=== PATIENT | male | born 1965 | race Caucasian/White ===

== ENCOUNTER → 2016-12-26 | Outpatient (CLI) | payer BC ==
[~2016-12-26] MED LIST: /FENO14TA PO; /WARF4TA PO; /WARF5TA PO; ASPI1TAB PO; ASPI81TA85 PO; BISA10SU PR; BUSP10TA PO; COUM6TAB PO; COUM7.5T PO; CYMB60CA3 PO; FLEC10TA PO; LANO0.252 OR; LISI5TAB PO; LIVALO PO; LOPR50TA PO; LOVA1CAP16 PO; METO50TA4 PO; PRIL40CA PO; TENO100T PO; TYLE650T30 PO; WARF; WARF-20 PO; WARF-21 PO; WARF-22 PO; WARF05TA PO
[2016-12-26 17:17] LABS: INR 4.01
== END ==
LOC: M WUC 11:13
PROVIDERS: ATTEND Physician Assistant
DX: Z79.01 Long term (current) use of anticoagulants (principal); Z95.2 Presence of prosthetic heart valve

== ENCOUNTER 2017-05-15 14:00 | Emergency (ER) | payer BC ==
[~2017-05-15] VITALS: Ht 182.9 cm; Wt 73.6 kg
[2017-05-15] MEDS ORDERED: MAGN500C PO (14:10)
[2017-05-15] MEDS ORDERED: PRAV40TA2 (14:10)
[2017-05-15] MEDS ORDERED: MORPHINE 4 MG/ML 1ML SYRINGE IV ONE (15:30)
[2017-05-15 16:06] LABS: BASO % 0.2 % (0.0-1.0); EOS # 0.1 10^3/uL (0.0-0.50); EOS % 0.4 % (0.0-3.0); IMMATURE GRANULOCYTE % 0.5 % (0-0); LYMPH # 1.6 10^3/uL (1.5-4.5); LYMPH % 9.1 % (24.0-44.0); MEAN CORPUSCULAR HEMOGLOBIN 31.1 pg (27.0-33.0); MEAN CORPUSCULAR HGB CONC 35.3 g/dl (32.0-36.5); MEAN CORPUSCULAR VOLUME 88.1 fl (80.0-96.0); MONO # 1.4 10^3/uL (0.0-0.8); NEUTROPHILS # 13.9 10^3/uL (1.8-7.7); NEUTROPHILS % 81.8 % (36.0-66.0); PLATELET COUNT, AUTOMATED 303 10^3/uL (150-450); RED CELL DISTRIBUTION WIDTH 12.2 % (11.5-14.5)
[2017-05-15 16:32] LABS: ERYTHROCYTE SEDIMENTATION RATE 33 mm/hr (0-20)
[2017-05-15 16:36] LABS: ANION GAP 5 MEQ/L (8-16); BLOOD UREA NITROGEN 15 MG/DL (7-18); CALCIUM LEVEL 9.7 MG/DL (8.5-10.1); CARBON DIOXIDE LEVEL 29 MEQ/L (21-32); CHLORIDE LEVEL 104 MEQ/L (98-107); CREATININE FOR GFR 0.99 MG/DL (0.70-1.30); GLOMERULAR FILTRATION RATE > 60.0 (>56); GLUCOSE, FASTING 109 MG/DL (70-105); POTASSIUM SERUM 4.1 MEQ/L (3.5-5.1); SODIUM LEVEL 138 MEQ/L (136-145)
[2017-05-15] MEDS ORDERED: ISOVUE-370 76% 100ML VIAL (Q9967) As Ordered ONE (16:47)
--- NOTE | 2017-05-15 17:29 | REP ---
CT of the pelvis with IV contrast for perirectal abscess: Comparison is the CT of the abdomen and pelvis dated 12/17 2012. In the soft tissues posterior to the rectum. There is a low density mass measuring 2.1 x 3.2 cm compatible with perirectal abscess. This may be confined within the dermis as it does not appear to extend into the perirectal or ischiorectal fat planes at this time. The pelvic bowel loops demonstrate diverticulosis without diverticulitis. There is no ascites. The bladder is nondistended. There are surgical clips adjacent to the cecum. Signed by Fito Ling MD 05/15/2017 05:20 P
[2017-05-15] MEDS ORDERED: COLA100C5 PO (17:58)
[2017-05-15] MEDS ORDERED: NORC1TAB4 PO (17:58)
[2017-05-15] MEDS ORDERED: LIDOCAINE W/EPINEPHRINE 1% 20ML VIAL SC ONE (18:00)
[2017-05-15] MEDS ORDERED: CLEO300C2 PO (18:12)
[2017-05-15] MEDS ORDERED: CLINDAMYCIN 150 MG CAP PO ONE (18:15)
[2017-05-15 18:33] VITALS: BP 140/82
--- NOTE | 2017-05-16 15:39 | CR ---
DATE OF CONSULTATION: 05/15/2017 REASON FOR CONSULTATION: Perirectal abscess. CHIEF COMPLAINT: The patient is a 52-year-old male. He has been complaining of some pain along his posterior rectum since this past Thursday. Pain got progressively worse throughout the week. There was no active bleeding. No blood in his stool. No drainage from this spot, and he has never had any spots like this in the past, but with the progression of the pain and no relief of his symptoms, he came in to be evaluated. In the emergency room (ER) he was found to have swollen lump on his posterior rectum. He had a CT scan which confirmed that there was a fluid collection there and he also had elevated white count of 17,000. I was called to evaluate for drainage. Other than the pain in the rectum, he denies any other complaints. No nausea or vomiting. No fevers or chills. No previous problems with swelling hemorrhoids or blood in his stool, change in bowel habits. No previous colonoscopy and no previous rectal issues. PAST MEDICAL HISTORY: 1. Mitral valve prolapse with mechanical valve replacement. 2. Congestive heart failure (CHF). 3. Hypertension. 4. Gastroesophageal reflux disease (GERD). 5. Hypercholesterolemia. PAST SURGICAL HISTORY: 1. Appendectomy. 2. Mechanical valve replacement. ALLERGIES: None. HOME MEDICATIONS: Please see med rec, but may include Coumadin. SOCIAL HISTORY: Denies any drug, alcohol, tobacco abuse. FAMILY HISTORY: Noncontributory. REVIEW OF SYSTEMS: Pertinent positives and negatives stated in the history of present illness (HPI) . PHYSICAL EXAMINATION GENERAL: Alert and oriented times three. No acute stress. VITALS: Temperature 98.5, pulse 87, respirations 18, blood pressure 140/82, pulse oximetry 95% room air. HEENT: Pupils equal, round react to light and accommodation. HEART: S1, S2 RRR LUNGS: Clear to auscultation bilaterally. ABDOMEN: Soft, nontender, nondistended. RECTAL EXAM: There is a large swollen fluctuant area with some erythema in the posterior rectum just on the posterior midline position. No active drainage. EXTREMITIES: No clubbing, cyanosis or edema. LABORATORY DATA: White count 17, hemoglobin 13.9, platelets 303. Sodium 138, potassium 4.1, creatinine 0.99. IMAGING: CT abdomen and pelvis was done which shows a 2.1 x 3.2 cm fluid collection in the posterior perirectal tissues. ASSESSMENT AND PLAN: Patient is a 52-year-old male with signs and symptoms consistent with perirectal abscess that he has had for about a week, also with elevated leukocytosis secondary to this. Recommendation is to proceed with incision and drainage in the ER; then he can be discharged home from the ER with oral antibiotics and followup with me in the office as needed. I discussed these recommendations with the patient. He agreed and was agreeable to having the procedure completed. Consent form was signed. The nurse was in the room and available throughout the entire procedure. The perirectal area was prepped and draped sterilely with Betadine. Next, six mL of 1% lidocaine with epinephrine was injected in the skin overlying and surrounding this abscess. Once that was completed, an 11 blade scalpel was used to make a cruciate incision right in the center of the abscess, and a large amount of purulent drainage was removed. The area was then irrigated with normal saline. Once that was completed, the corners of the cruciate incision were cut out. The wound was covered with dry 4x4s and then covered in tape. The patient tolerated the procedure well and was discharged by the emergency room. INEZ
== END 2017-05-15 18:49 | disposition home or self-care (01) ==
LOC: M ED 14:00
DX: K61.1 Rectal abscess (principal); I11.0 Hypertensive heart disease with heart failure; K21.9 Gastro-esophageal reflux disease without esophagitis; E78.00 Pure hypercholesterolemia, unspecified; F41.9 Anxiety disorder, unspecified; Z95.1 Presence of aortocoronary bypass graft; Z86.79 Personal history of other diseases of the circulatory system
CPT/HCPCS: 46040; 72193; 80048; 85025; 85652; 86140; 99284; Q9967

== ENCOUNTER 2018-08-27 15:42 | Emergency (ER) | payer BC ==
[~2018-08-27] VITALS: Ht 182.9 cm; Wt 77.3 kg
[~2018-08-27 15:42] MED LIST changes: +CLEO300C2 PO; +COLA100C5 PO; +MAGN500C PO; +NORC1TAB4 PO; +PRAV40TA2
[2018-08-27 16:07] LABS: BASO % 0.4 % (0.0-1.0); EOS # 0.2 10^3/uL (0.0-0.50); HEMATOCRIT 44.2 % (42.0-52.0); HEMOGLOBIN 15.3 g/dl (13.5-17.5); LYMPH # 2.8 10^3/uL (1.5-4.5); LYMPH % 33.7 % (24.0-44.0); MEAN CORPUSCULAR HEMOGLOBIN 31.5 pg (27.0-33.0); MEAN CORPUSCULAR HGB CONC 34.6 g/dl (32.0-36.5); MEAN CORPUSCULAR VOLUME 91.1 fl (80.0-96.0); MONO # 0.8 10^3/uL (0.0-0.8); MONO % 9.1 % (0.0-5.0); NEUTROPHILS # 4.5 10^3/uL (1.8-7.7); NEUTROPHILS % 54.3 % (36.0-66.0); PLATELET COUNT, AUTOMATED 272 10^3/uL (150-450); RED BLOOD COUNT 4.85 10^6/uL (4.30-6.10); WHITE BLOOD COUNT 8.3 10^3/uL (4.0-10.0)
[2018-08-27 16:27] LABS: INR 1.65; PROTHROMBIN TIME 19.8 SECONDS (12.1-14.4)
[2018-08-27 16:40] LABS: BLOOD UREA NITROGEN 18 MG/DL (7-18); CALCIUM LEVEL 8.9 MG/DL (8.5-10.1); CARBON DIOXIDE LEVEL 29 MEQ/L (21-32); CHLORIDE LEVEL 102 MEQ/L (98-107); CREATININE FOR GFR 1.14 MG/DL (0.70-1.30); GLOMERULAR FILTRATION RATE > 60.0 (>56); GLUCOSE, FASTING 155 MG/DL (70-100); SODIUM LEVEL 137 MEQ/L (136-145)
[2018-08-27] MEDS ORDERED: ISOVUE-370 76% 100ML VIAL (Q9967) As Ordered ONE (17:40)
[2018-08-27] MEDS ORDERED: NS 1,000 ML IV ONE (17:45)
--- NOTE | 2018-08-27 18:40 | REP ---
Clinical: Painless hematuria. Technique: Axial precontrast, contrast enhanced, and delayed images of the abdomen and pelvis using 100 ml Isovue 370 intravenous contrast material with delayed CT urogram. Findings: Left kidney demonstrates 2 mm nonobstructing calculus and 3 mm calculus at the ureterovesicle junction without hydronephrosis or perinephric stranding. The right kidney/ureter and bladder appear normal. Enhanced and delayed images demonstrate see symmetric enhancement of the renal cortex and symmetric excretion to the collecting system without obstruction. Liver, spleen, pancreas, gallbladder, bilateral adrenal glands are normal. The enteric system is without obstruction or acute inflammatory process. Evidence for prior appendectomy noted. Pelvis demonstrates normal bladder and age appropriate prostate/seminal vesicles. No ascites. No free air. No significant adenopathy. Atherosclerotic changes to the aorta noted without aneurysm. Surrounding musculoskeletal structures demonstrate age-related changes without focal osseous abnormality. Lung bases are clear. Impression: 1. Left kidney includes 2 mm nonobstructing calculus and 3 mm calculus at the ureterovesicle junction which may be causing intermittent obstruction. No significant hydronephrosis or perinephric stranding. Enhanced and delayed images demonstrate symmetric nephrograms and symmetric excretion to the collecting system. Electronically Signed by Patrick Barraza MD 08/27/2018 06:31 P
[2018-08-27] MEDS ORDERED: FLOM0.4C39 PO (18:46)
[2018-08-27 19:00] VITALS: BP 143/70
== END 2018-08-27 19:03 | disposition home or self-care (01) ==
LOC: M ED 15:42
DX: N20.1 Calculus of ureter (principal); R31.0 Gross hematuria; D68.32 Hemorrhagic disorder due to extrinsic circulating anticoagulants; Z87.891 Personal history of nicotine dependence; Z79.899 Other long term (current) drug therapy; Z79.01 Long term (current) use of anticoagulants; Z79.82 Long term (current) use of aspirin
CPT/HCPCS: 36415; 74178; 80048; 81001; 85025; 85610; 99284; Q9967

== ENCOUNTER → 2019-08-25 | Outpatient (CLI) | payer BC ==
[~2019-08-25] MED LIST changes: -/FENO14TA PO; -/WARF4TA PO; -/WARF5TA PO; -ASPI1TAB PO; +ASPI81TA26 PO; +COUM1TAB14 PO; +COUM1TAB17 PO; -FLEC10TA PO; +FLEC1TAB PO; +FLOM0.4C39 PO; -NORC1TAB4 PO; +NORC1TAB7 PO; +TRIC145T19 PO
--- NOTE | 2019-08-26 01:45 | REP ---
Clinical: Acute bronchitis . Comparison: 04/02/2014 . Technique: PA and lateral. Findings: The mediastinum and cardiac silhouette are stable with evidence of prior sternotomy and cardiac valve repair. The lung shelton are clear and without acute consolidation, effusion, or pneumothorax. The skeletal structures are intact and normal. Impression: 1. No acute cardiopulmonary process. Electronically Signed by Patrick Barraza MD 08/26/2019 01:36 A
== END ==
LOC: M WUC 12:19
PROVIDERS: ATTEND Internal Medicine
DX: J20.9 Acute bronchitis, unspecified (principal)

== ENCOUNTER 2019-10-24 12:10 | Emergency (ER) | payer BC ==
[~2019-10-24] VITALS: Ht 175.3 cm; Wt 74.8 kg
[2019-10-24] MEDS: METOPROLOL 5 MG/5 ML VIAL IV SCH ×3 (12:27→12:44)
[2019-10-24] MEDS ORDERED: NS 1,000 ML IV ONE (12:30)
[2019-10-24 12:37] LABS: BASO % 0.2 % (0.0-1.0); HEMATOCRIT 39.7 % (42.0-52.0); HEMOGLOBIN 13.7 g/dl (13.5-17.5); LYMPH # 1.9 10^3/uL (1.5-5.0); LYMPH % 13.5 % (24.0-44.0); MEAN CORPUSCULAR HEMOGLOBIN 31.2 pg (27.0-33.0); MEAN CORPUSCULAR HGB CONC 34.5 g/dl (32.0-36.5); MEAN CORPUSCULAR VOLUME 90.4 fl (80.0-96.0); MONO % 7.1 % (0.0-5.0); NEUTROPHILS # 10.9 10^3/uL (1.5-8.5); NEUTROPHILS % 78.7 % (36.0-66.0); PLATELET COUNT, AUTOMATED 288 10^3/uL (150-450); RED BLOOD COUNT 4.39 10^6/uL (4.30-6.10); WHITE BLOOD COUNT 13.9 10^3/uL (4.0-10.0)
[2019-10-24 12:44] VITALS: BP 108/87
[2019-10-24 12:47] LABS: INR 2.54; PROTHROMBIN TIME 27.2 SECONDS (11.8-14.0)
[2019-10-24 12:48] LABS: PARTIAL THROMBOPLASTIN TIME 35.6 SECONDS (25.0-38.4)
--- NOTE | 2019-10-24 12:59 | REP ---
CHEST, PORTABLE: AP portable view of the chest is performed. Comparison 08/25/2019. There is mild cardiomegaly. There is mild accentuation of interstitial markings unchanged. No new infiltrate is seen. Mediastinal is silhouette is unchanged. Multiple sternal wires are present. There is a prosthetic heart valve. IMPRESSION: Cardiomegaly with mild accentuation of interstitial markings unchanged since 08/25/2019. No new infiltrate. Electronically Signed by Fito Chacko MD 10/24/2019 03:19 P
[2019-10-24 13:14] LABS: ALT/SGPT 279 U/L (12-78); BILIRUBIN,DIRECT 0.7 MG/DL (0.0-0.2); BILIRUBIN,TOTAL 1.8 MG/DL (0.2-1.0); BLOOD UREA NITROGEN 38 MG/DL (7-18); CALCIUM LEVEL 8.5 MG/DL (8.5-10.1); CARBON DIOXIDE LEVEL 26 MEQ/L (21-32); CHLORIDE LEVEL 99 MEQ/L (98-107); CK-MB VALUE MASS < 1.0 NG/ML (<3.6); CPK CREATINE PHOSPHOKINASE 81 U/L (39-308); CREATININE FOR GFR 1.81 MG/DL (0.70-1.30); GLOMERULAR FILTRATION RATE 41.8 (>56); GLUCOSE, FASTING 187 MG/DL (70-100); MAGNESIUM LEVEL 1.7 MG/DL (1.8-2.4); MB/CK RELATIVE INDEX 1.23 (< OR =4); NT-PRO BNP 16836 PG/ML (<125); POTASSIUM SERUM 4.5 MEQ/L (3.5-5.1); SODIUM LEVEL 133 MEQ/L (136-145); TOTAL PROTEIN 7.1 GM/DL (6.4-8.2); TROPONIN I 0.03 NG/ML (< 0.10)
[2019-10-24] MEDS ORDERED: DIGOXIN INJ 0.5 MG/2 ML AMP (J1160) IV STA (13:14)
[2019-10-24] MEDS ORDERED: AMIODARONE HCL 150 MG in IV 1 EA IV STA ×2 (14:15→14:32)
[2019-10-24] MEDS ORDERED: AMIODARONE HCL 150 MG/100 ML PREMIXED BAG (NEXTERONE) (J0282 PER 30MG) As Ordered ONE (14:16)
[2019-10-24 14:42] LABS: LIPASE 129 U/L (73-393)
[2019-10-24 15:55] VITALS: BP 121/83
--- NOTE | 2019-10-24 16:43 | ECGEPIP ---
[facility] - ED Test Date: 2019-10-24 Pat Name: RASHAWN MADRID Department: Room: - Gender: Male Systems Programmer: ANGELINE : 1965 Requested By: SWATHI TORRES Order Number: [id number] Reading MD: Jt Peres Measurements Intervals Abbot Rate: 176 P: CO: 0 QRS: 26 QRSD: 90 T: 26 QT: 244 QTc: 418 Interpretive Statements ATRIAL FIBRILLATION WITH RAPID VENTRICULAR RESPONSE NONSPECIFIC ST & T-WAVE ABNORMALITY ABNORMAL RHYTHM ECG LOW QRS VOLTAGE LIMB LEADS DELAYED R WAVE PROGRESSION NO PRIOR ECG FOR COMPARISON Electronically Signed on 10-24-2019 16:43:36 EDT by Jt Peres
== END 2019-10-24 16:41 | disposition left against medical advice (07) ==
LOC: M ED 12:10
DX: I48.91 Unspecified atrial fibrillation (principal); R94.31 Abnormal electrocardiogram [ECG] [EKG]; Z53.21 Procedure and treatment not carried out due to patient leaving prior to being seen by health care provider; I50.9 Heart failure, unspecified; Z95.2 Presence of prosthetic heart valve; Z87.891 Personal history of nicotine dependence; I51.7 Cardiomegaly; Z79.82 Long term (current) use of aspirin; Z79.01 Long term (current) use of anticoagulants; Z79.899 Other long term (current) drug therapy
CPT/HCPCS: 71045; 80047; 80048; 80076; 82550; 82553; 83690; 83735; 83880; 84443; 84484; 85025; 85610; 85730; 93005; 93041; 96374; 99285; J0282; J1160

== ENCOUNTER → 2020-01-31 | Outpatient (CLI) | payer BC ==
--- NOTE | 2020-02-01 07:27 | REP ---
REASON: Rib sprain. PRIORS: None. The accompanying frontal view of the chest has been compared to the latest prior examination of 10/24/2019. The frontal view of the chest is unchanged from the prior exam, showing no acute disease. Multiple views of right ribs show no acute fracture. Electronically Signed by Kee Yepez DO 02/01/2020 09:28 A
== END ==
LOC: M WUC 11:51
PROVIDERS: ATTEND Nurse Practitioner Family
DX: S23.41XA Sprain of ribs, initial encounter (principal); X58.XXXA Exposure to other specified factors, initial encounter; Y92.89 Other specified places as the place of occurrence of the external cause

== ENCOUNTER → 2020-04-24 | Outpatient (CLI) | payer BC ==
--- NOTE | 2020-05-01 13:55 | REP ---
RIGHT ANKLE SERIES HISTORY: Fall on stairs with ankle pain laterally. TECHNIQUE: Four views of the left ankle are performed. FINDINGS: There is no acute fracture or dislocation. Ankle mortise is anatomic. No intrinsic osseous pathology is seen. There is mild lateral soft tissue swelling. IMPRESSION: Mild lateral soft tissue swelling. No acute fracture or dislocation. MTDD
== END ==
LOC: M WUC 15:00
PROVIDERS: ATTEND Physician Assistant
DX: S93.401A Sprain of unspecified ligament of right ankle, initial encounter (principal)

== ENCOUNTER → 2021-01-03 | Outpatient (CLI) | payer BC ==
--- NOTE | 2021-01-03 10:16 | REP ---
INDICATION: PAROXYSMAL ATRIAL FIBRILLATION COMPARISON: 08/25/2019 TECHNIQUE: PA and lateral. FINDINGS: Evidence for prior sternotomy and cardiac valve repair. No cardiomegaly. Lung shelton demonstrate stable chronic interstitial changes. No acute consolidation, effusion, or pneumothorax. Skeletal structures intact. IMPRESSION: Chronic stable changes. <Electronically signed by Patrick Barraza > 01/03/21 [id number]
== END ==
LOC: M WUC 09:47
PROVIDERS: ATTEND Physician Assistant
DX: I48.0 Paroxysmal atrial fibrillation (principal)

== ENCOUNTER 2021-04-27 10:44 | Emergency (ER) | payer BC ==
[~2021-04-27] VITALS: Ht 182.9 cm; Wt 73.3 kg
[2021-04-27] MEDS ORDERED: MORPHINE 4 MG/ML 1ML VIAL/SYRINGE (J2270) IV ONE (13:00)
[2021-04-27] MEDS ORDERED: ONDANSETRON 4MG/2ML VIAL IV ONE (13:00)
[2021-04-27] MEDS ORDERED: NS 1,000 ML IV ONE (13:00)
[2021-04-27 13:36] LABS: BASO % 0.3 % (0.0-1.0); EOS # 0.1 10^3/uL (0.0-0.5); HEMATOCRIT 39.4 % (42.0-52.0); HEMOGLOBIN 13.6 g/dl (13.5-17.5); LYMPH # 1.8 10^3/uL (1.5-5.0); LYMPH % 13.9 % (24.0-44.0); MEAN CORPUSCULAR HGB CONC 34.5 g/dl (32.0-36.5); MEAN CORPUSCULAR VOLUME 92.7 fl (80.0-96.0); MONO # 1.1 10^3/uL (0.0-0.8); MONO % 8.9 % (2.0-8.0); NEUTROPHILS # 9.5 10^3/uL (1.5-8.5); NEUTROPHILS % 75.5 % (36.0-66.0); PLATELET COUNT, AUTOMATED 263 10^3/uL (150-450); RED BLOOD COUNT 4.25 10^6/uL (4.30-6.10); WHITE BLOOD COUNT 12.6 10^3/uL (4.0-10.0)
[2021-04-27 14:03] LABS: ALBUMIN 3.9 GM/DL (3.2-5.2); BILIRUBIN,DIRECT 0.2 MG/DL (0.0-0.2); BILIRUBIN,TOTAL 0.5 MG/DL (0.2-1.0)
[2021-04-27] MEDS ORDERED: ISOVUE-370 76% 100ML VIAL As Ordered ONE (14:05)
[2021-04-27] MEDS ORDERED: MORPHINE 2 MG/ML 1ML VIAL (J2270) IV ONE (14:20)
--- NOTE | 2021-04-27 14:31 | REP ---
INDICATION: perirectal abscess. COMPARISON: Comparison CT study is from August 27, 2018. TECHNIQUE: Helical scanning is acquired following the intravenous injection of 100 mL of Isovue 370. 3 mm axial images re-formatted. Coronal and sagittal MPR images are included. FINDINGS: Preliminary digital filler shaker radiograph is unremarkable except for a surgical clip in the right lower quadrant. The patient gives a history of previous appendectomy. CT images through the pelvis show small and large bowel loops are unremarkable. Urinary bladder is intact. There are 1 or 2 dystrophic calcifications in the prostate. The seminal vesicles are unremarkable. No pelvic mass or adenopathy is seen. No abdominal wall defect is observed. Images taken through the perineum demonstrate a perirectal abscess to the right and posterior of the anal canal. This measures 4.0 cm anterior to posterior by 2.3 cm right to left by 5.0 cm cranial to caudal. There is surrounding edema. No soft tissue gas is appreciated. No bony destructive lesion is seen. No abdominal wall defect is observed. There is a vacuum phenomena at the L5-S1 disc. IMPRESSION: 5.0 cm right posterior perianal abscess seen. <Electronically signed by Dave Goss > 04/27/21 [id number]
[2021-04-27] MEDS ORDERED: LIDOCAINE W/EPINEPHRINE 1% 20ML VIAL INFIL ONE (14:35)
[2021-04-27] MEDS ORDERED: PIPERACILLIN/TAZOBACTAM SOD 3.375 GM in D5W MINI-BAG PLUS 50 ML IV ONE (14:35)
[2021-04-27] MEDS ORDERED: COLA100C5 PO (15:53)
[2021-04-27] MEDS ORDERED: AUGM875T28 PO (15:53)
[2021-04-27 15:59] VITALS: BP 145/68
--- NOTE | 2021-05-16 14:06 | RO ---
OPERATIVE NOTE DATE OF OPERATION: 04/27/2021 PREOPERATIVE DIAGNOSIS: Perirectal abscess. POSTOPERATIVE DIAGNOSIS: Perirectal abscess. PROCEDURE: Incision and drainage of perirectal abscess. SURGEON: Adebayo Cabello Jr., MD. INFRASTRUCTURE DESIGN ENGINEER: ANESTHESIA: Local lidocaine mixed with epinephrine. EBL: Minimal. FLUIDS: Crystalloid. BRIEF PROCEDURE SUMMARY: The patient was left in the emergency room bed and was prepped and draped in the usual sterile fashion once he was in the lateral decubitus position, and a finder needle was placed into the perirectal abscess and gained access into the abscess cavity. An elliptical incision was made on the abscess cavity and irrigated copiously until clear. A dry sterile dressing was applied. Patient was discharged to home with instructions to perform sitz baths on a t.i.d. basis and follow up in the office for further evaluation and recommendations, sooner if there is any increasing pain, discomfort, or problems.
== END 2021-04-27 16:23 | disposition home or self-care (01) ==
LOC: M ED 10:44
DX: K61.0 Anal abscess (principal); I50.9 Heart failure, unspecified; E11.9 Type 2 diabetes mellitus without complications; I10 Essential (primary) hypertension; E78.5 Hyperlipidemia, unspecified; K21.9 Gastro-esophageal reflux disease without esophagitis; F41.9 Anxiety disorder, unspecified; F32.9 Major depressive disorder, single episode, unspecified; Z87.01 Personal history of pneumonia (recurrent); Z95.2 Presence of prosthetic heart valve
CPT/HCPCS: 10060; 36415; 72193; 80047; 80076; 83605; 83690; 85025; 96365; 96366; 96375; 96376; 99284; J2270; J2405; J2543; Q9967

== ENCOUNTER → 2021-07-16 | Outpatient (CLI) | payer BC ==
[~2021-07-16] MED LIST changes: +AUGM875T28 PO
--- NOTE | 2021-07-16 09:57 | REP ---
INDICATION: PAROXYSMAL ATRIAL FIBRILLATION COMPARISON: 01/03/2021 TECHNIQUE: PA and lateral. FINDINGS: The mediastinum and cardiac silhouette are stable. The lung shelton are clear and without acute consolidation, effusion, or pneumothorax. The skeletal structures are intact and normal. IMPRESSION: No acute cardiopulmonary process. <Electronically signed by Patrick Barraza > 07/16/21 [id number]
== END ==
LOC: M WUC 09:38
PROVIDERS: ATTEND Physician Assistant
DX: I48.0 Paroxysmal atrial fibrillation (principal)

== ENCOUNTER 2021-10-11 19:20 | Emergency (ER) | payer BC ==
[~2021-10-11] VITALS: Ht 182.9 cm; Wt 75.9 kg
[2021-10-11] MEDS ORDERED: FENO145T7 PO (19:39)
[2021-10-11 20:10] LABS: BASO # 0.1 10^3/uL (0.0-0.2); BASO % 0.5 % (0.0-1.0); EOS # 0.2 10^3/uL (0.0-0.5); EOS % 2.4 % (0.0-3.0); HEMATOCRIT 40.3 % (42.0-52.0); HEMOGLOBIN 14.1 g/dl (13.5-17.5); LYMPH # 2.8 10^3/uL (1.5-5.0); LYMPH % 30.4 % (24.0-44.0); MEAN CORPUSCULAR HEMOGLOBIN 31.3 pg (27.0-33.0); MEAN CORPUSCULAR VOLUME 89.4 fl (80.0-96.0); MONO # 0.8 10^3/uL (0.0-0.8); MONO % 8.5 % (2.0-8.0); NEUTROPHILS # 5.3 10^3/uL (1.5-8.5); NEUTROPHILS % 57.8 % (36.0-66.0); PLATELET COUNT, AUTOMATED 239 10^3/uL (150-450); RED BLOOD COUNT 4.51 10^6/uL (4.30-6.10); WHITE BLOOD COUNT 9.1 10^3/uL (4.0-10.0)
[2021-10-11 20:21] LABS: INR 1.95; PROTHROMBIN TIME 22.6 SECONDS (12.7-14.5)
[2021-10-11] MEDS ORDERED: METOPROLOL TART 50 MG TAB PO ONE (20:30)
[2021-10-11] MEDS ORDERED: METOPROLOL TARTRATE 100MG TAB PO ONE (20:30)
[2021-10-11 20:31] LABS: BLOOD UREA NITROGEN 20 MG/DL (7-18); CARBON DIOXIDE LEVEL 29 MEQ/L (21-32); CHLORIDE LEVEL 109 MEQ/L (98-107); CREATININE FOR GFR 1.14 MG/DL (0.70-1.30); GLOMERULAR FILTRATION RATE > 60.0 (>56); GLUCOSE, FASTING 200 MG/DL (70-100); POTASSIUM SERUM 4.1 MEQ/L (3.5-5.1); SODIUM LEVEL 142 MEQ/L (136-145)
[2021-10-11 20:35] LABS: CK-MB VALUE MASS < 1.0 NG/ML (<3.6); CPK CREATINE PHOSPHOKINASE 212 U/L (39-308); MB/CK RELATIVE INDEX 0.47 (< OR =4)
[2021-10-11] MEDS ORDERED: METO1TAB33 PO (20:50)
[2021-10-11] MEDS ORDERED: DIGO0.123 PO (20:50)
[2021-10-11] MEDS ORDERED: WARF-60 PO (20:50)
[2021-10-11] MEDS ORDERED: ICOS1CAP PO (20:50)
[2021-10-11] MEDS ORDERED: AMIO200T49 PO (20:50)
[2021-10-11] MEDS ORDERED: ROSU20TA5 PO (20:50)
[2021-10-11] MEDS ORDERED: GLIP5TAB20 PO (20:50)
[2021-10-11] MEDS ORDERED: WARF-20 PO (20:50)
[2021-10-11 21:03] VITALS: BP 128/67
[2021-10-11 22:02] VITALS: BP 140/66
== END 2021-10-11 22:08 | disposition home or self-care (01) ==
LOC: M ED 19:20
DX: R00.2 Palpitations (principal); I48.91 Unspecified atrial fibrillation; I11.0 Hypertensive heart disease with heart failure; I50.9 Heart failure, unspecified; E78.5 Hyperlipidemia, unspecified

== ENCOUNTER → 2022-01-13 | Outpatient (CLI) | payer BC ==
[~2022-01-13] MED LIST changes: +AMIO200T49 PO; +DIGO0.123 PO; +FENO145T7 PO; +GLIP5TAB20 PO; +ICOS1CAP PO; +METO1TAB33 PO; +ROSU20TA5 PO; +WARF-60 PO
[2022-01-13 13:39] LABS: BASO % 0.5 % (0.0-1.0); EOS # 0.1 10^3/uL (0.0-0.5); EOS % 1.7 % (0.0-3.0); HEMATOCRIT 46.3 % (42.0-52.0); HEMOGLOBIN 15.6 g/dl (13.5-17.5); LYMPH # 2.1 10^3/uL (1.5-5.0); LYMPH % 28.3 % (24.0-44.0); MEAN CORPUSCULAR HEMOGLOBIN 31.6 pg (27.0-33.0); MEAN CORPUSCULAR HGB CONC 33.7 g/dl (32.0-36.5); MEAN CORPUSCULAR VOLUME 93.9 fl (80.0-96.0); MONO # 0.7 10^3/uL (0.0-0.8); MONO % 9.6 % (2.0-8.0); NEUTROPHILS # 4.5 10^3/uL (1.5-8.5); NEUTROPHILS % 59.6 % (36.0-66.0); PLATELET COUNT, AUTOMATED 287 10^3/uL (150-450); RED BLOOD COUNT 4.93 10^6/uL (4.30-6.10); WHITE BLOOD COUNT 7.6 10^3/uL (4.0-10.0)
[2022-01-13 14:14] LABS: MAGNESIUM LEVEL 2.3 MG/DL (1.8-2.4); THYROID STIMULATING HORMONE 2.84 uIU/ML (0.358-3.740)
== END ==
LOC: M WUC 09:34
PROVIDERS: ATTEND Physician Assistant
DX: I48.0 Paroxysmal atrial fibrillation (principal)

== ENCOUNTER → 2022-01-14 | Outpatient (REF) | payer BC ==
[2022-01-14 16:30] LABS: BLOOD UREA NITROGEN 19 MG/DL (7-18); CARBON DIOXIDE LEVEL 30 MEQ/L (21-32); CHLORIDE LEVEL 104 MEQ/L (98-107); CREATININE FOR GFR 1.23 MG/DL (0.70-1.30); GLOMERULAR FILTRATION RATE > 60.0 (>56); GLUCOSE, FASTING 118 MG/DL (70-100); SODIUM LEVEL 141 MEQ/L (136-145)
== END ==
LOC: M WUC 15:29
PROVIDERS: ATTEND Physician Assistant
DX: I50.32 Chronic diastolic (congestive) heart failure (principal)

== ENCOUNTER → 2022-05-01 | Outpatient (CLI) | payer BC | LOC: M WUC 15:50 | PROVIDERS: ATTEND Physician Assistant | DX: S93.402A Sprain of unspecified ligament of left ankle, initial encounter (principal); X58.XXXA Exposure to other specified factors, initial encounter; R93.6 Abnormal findings on diagnostic imaging of limbs ==

== ENCOUNTER → 2022-05-05 | Outpatient (CLI) | payer BC | LOC: M PLAIMG 08:38 | PROVIDERS: ATTEND Physician Assistant | DX: S93.401A Sprain of unspecified ligament of right ankle, initial encounter (principal); W18.30XA Fall on same level, unspecified, initial encounter; Y92.009 Unspecified place in unspecified non-institutional (private) residence as the place of occurrence of the external cause ==

== ENCOUNTER → 2022-05-13 | Outpatient (CLI) | payer BC ==
[2022-05-13 12:35] LABS: INR 1.93; PROTHROMBIN TIME 22.4 SECONDS (12.5-14.5)
== END ==
LOC: M WUC 10:28
PROVIDERS: ATTEND Physician Assistant
DX: Z95.2 Presence of prosthetic heart valve (principal); Z79.01 Long term (current) use of anticoagulants

== ENCOUNTER → 2022-05-19 | Outpatient (CLI) | payer BC ==
[2022-05-19 10:16] LABS: INR 1.26; PROTHROMBIN TIME 16.1 SECONDS (12.5-14.5)
== END ==
LOC: M WUC 08:44
PROVIDERS: ATTEND Physician Assistant
DX: Z95.2 Presence of prosthetic heart valve (principal); Z79.01 Long term (current) use of anticoagulants

== ENCOUNTER → 2022-05-22 | Outpatient (CLI) | payer BC ==
[2022-05-22 14:15] LABS: INR 1.51; PROTHROMBIN TIME 18.5 SECONDS (12.5-14.5)
== END ==
LOC: M WUC 10:11
PROVIDERS: ATTEND Physician Assistant
DX: Z95.2 Presence of prosthetic heart valve (principal); Z79.01 Long term (current) use of anticoagulants

== ENCOUNTER → 2022-05-27 | Outpatient (CLI) | payer BC ==
[2022-05-27 10:50] LABS: INR 1.51; PROTHROMBIN TIME 18.5 SECONDS (12.5-14.5)
== END ==
LOC: M WUC 08:36
PROVIDERS: ATTEND Physician Assistant
DX: Z95.2 Presence of prosthetic heart valve (principal); Z79.01 Long term (current) use of anticoagulants

== ENCOUNTER → 2022-05-29 | Outpatient (CLI) | payer BC ==
[2022-05-29 10:51] LABS: INR 2.39; PROTHROMBIN TIME 26.5 SECONDS (12.5-14.5)
== END ==
LOC: M WUC 08:43
PROVIDERS: ATTEND Physician Assistant
DX: Z51.81 Encounter for therapeutic drug level monitoring (principal); Z95.2 Presence of prosthetic heart valve; Z79.01 Long term (current) use of anticoagulants

== ENCOUNTER → 2022-09-29 | Outpatient (CLI) | payer BC ==
[2022-09-29 16:41] LABS: HEMATOCRIT 43.1 % (42.0-52.0); HEMOGLOBIN 14.2 g/dl (13.5-17.5); MEAN CORPUSCULAR HEMOGLOBIN 30.9 pg (27.0-33.0); MEAN CORPUSCULAR HGB CONC 32.9 g/dl (32.0-36.5); MEAN CORPUSCULAR VOLUME 93.7 fl (80.0-96.0); PLATELET COUNT, AUTOMATED 280 10^3/uL (150-450); WHITE BLOOD COUNT 7.6 10^3/uL (4.0-10.0)
[2022-09-29 17:01] LABS: HEMOGLOBIN A1c 7.5 % (4.0-6.0)
[2022-09-29 17:13] LABS: ALKALINE PHOSPHATASE 87 U/L (46-116); ALT/SGPT 67 U/L (7.0-40); AST/SGOT 58 U/L (<34); BILIRUBIN,TOTAL 0.6 MG/DL (0.3-1.2); BLOOD UREA NITROGEN 26 MG/DL (9-23); CARBON DIOXIDE LEVEL 28 MMOL/L (20-31); CHLORIDE LEVEL 104 MMOL/L (98-107); CHOLESTEROL LEVEL 129 MG/DL (<200); CHOLESTEROL RISK RATIO 3.83 (<5); CREATININE FOR GFR 0.84 MG/DL (0.70-1.30); GLOMERULAR FILTRATION RATE > 60.0 (>56); GLUCOSE, FASTING 214 MG/DL (60-100); HDL CHOLESTEROL 33.6 MG/DL (>40); LDL CHOLESTEROL 55.6 MG/DL (<100); NON-HDL-C 95 MG/DL; POTASSIUM SERUM 4.8 MMOL/L (3.5-5.1); SODIUM LEVEL 139 MMOL/L (136-145); TOTAL PROTEIN 7.4 G/DL (5.7-8.2); TRIGLYCERIDES LEVEL 199 MG/DL (<150)
== END ==
LOC: M WUC 12:34
PROVIDERS: ATTEND Internal Medicine
DX: I50.9 Heart failure, unspecified (principal); E78.2 Mixed hyperlipidemia; E11.9 Type 2 diabetes mellitus without complications; I48.91 Unspecified atrial fibrillation

== ENCOUNTER → 2023-04-01 | Outpatient (CLI) | payer BC ==
[~2023-04-01] MED LIST changes: -ROSU20TA5 PO; +ROSU20TA61 PO
[2023-04-01 14:18] LABS: MAGNESIUM LEVEL 1.7 MG/DL (1.8-2.4); THYROID STIMULATING HORMONE 5.195 uIU/ML (0.55-4.78)
== END ==
LOC: M WUC 09:36
PROVIDERS: ATTEND Physician Assistant
DX: I48.0 Paroxysmal atrial fibrillation (principal)

== ENCOUNTER → 2023-09-28 | Outpatient (CLI) | payer BC ==
[2023-09-28 17:06] LABS: ALBUMIN 4.4 G/DL (3.2-5.2); ALKALINE PHOSPHATASE 68 U/L (46-116); ALT/SGPT 59 U/L (7.0-40); AST/SGOT 43 U/L (<34); BILIRUBIN,TOTAL 0.4 MG/DL (0.3-1.2); BLOOD UREA NITROGEN 29 MG/DL (9-23); CALCIUM LEVEL 8.9 MG/DL (8.5-10.1); CARBON DIOXIDE LEVEL 29 MMOL/L (20-31); CHLORIDE LEVEL 105 MMOL/L (98-107); CREATININE FOR GFR 0.94 MG/DL (0.70-1.30); GLOMERULAR FILTRATION RATE > 60.0 (>56); GLUCOSE, FASTING 131 MG/DL (60-100); MAGNESIUM LEVEL 2.2 MG/DL (1.8-2.4); POTASSIUM SERUM 4.7 MMOL/L (3.5-5.1); SODIUM LEVEL 138 MMOL/L (136-145); TOTAL PROTEIN 7.2 G/DL (5.7-8.2)
[2023-09-28 17:08] LABS: THYROID STIMULATING HORMONE 3.589 uIU/ML (0.55-4.78)
[2023-09-28 17:17] LABS: HEMATOCRIT 47.1 % (42.0-52.0); MEAN CORPUSCULAR HEMOGLOBIN 31.7 pg (27.0-33.0); MEAN CORPUSCULAR VOLUME 93.3 fl (80.0-96.0); PLATELET COUNT, AUTOMATED 260 10^3/uL (150-450); RED BLOOD COUNT 5.05 10^6/uL (4.30-6.10); WHITE BLOOD COUNT 7.7 10^3/uL (4.0-10.0)
[2023-09-28 17:21] LABS: INR 2.35; PROTHROMBIN TIME 24.9 SECONDS (12.5-14.5)
== END ==
LOC: M WUC 11:44
PROVIDERS: ATTEND Physician Assistant
DX: I48.21 Permanent atrial fibrillation (principal); I50.42 Chronic combined systolic (congestive) and diastolic (congestive) heart failure

== ENCOUNTER → 2023-10-06 | Outpatient (REF) | payer BC ==
[2023-10-06 12:31] LABS: HEMOGLOBIN A1c 6.7 % (4.0-6.0)
== END ==
LOC: M LAB REF 08:25
PROVIDERS: ATTEND Dentist
DX: E11.618 Type 2 diabetes mellitus with other diabetic arthropathy (principal)

== ENCOUNTER → 2023-10-12 | Outpatient (CLI) | payer BC ==
[2023-10-12 12:18] LABS: BASO # 0.1 10^3/uL (0.0-0.2); BASO % 0.6 % (0.0-1.0); EOS # 0.2 10^3/uL (0.0-0.5); EOS % 2.3 % (0.0-3.0); HEMATOCRIT 47.5 % (42.0-52.0); HEMOGLOBIN 16.2 g/dl (13.5-17.5); LYMPH # 1.8 10^3/uL (1.5-5.0); LYMPH % 22.5 % (24.0-44.0); MEAN CORPUSCULAR HEMOGLOBIN 31.6 pg (27.0-33.0); MEAN CORPUSCULAR HGB CONC 34.1 g/dl (32.0-36.5); MEAN CORPUSCULAR VOLUME 92.8 fl (80.0-96.0); MONO # 0.8 10^3/uL (0.0-0.8); MONO % 9.7 % (2.0-8.0); NEUTROPHILS # 5.3 10^3/uL (1.5-8.5); NEUTROPHILS % 64.7 % (36.0-66.0); PLATELET COUNT, AUTOMATED 274 10^3/uL (150-450); RED BLOOD COUNT 5.12 10^6/uL (4.30-6.10); WHITE BLOOD COUNT 8.2 10^3/uL (4.0-10.0)
[2023-10-12 12:46] LABS: HEMOGLOBIN A1c 6.6 % (4.0-6.0)
[2023-10-12 12:51] LABS: ALBUMIN 4.4 G/DL (3.2-5.2); ALKALINE PHOSPHATASE 73 U/L (46-116); ALT/SGPT 68 U/L (7.0-40); AST/SGOT 41 U/L (<34); BILIRUBIN,TOTAL 0.5 MG/DL (0.3-1.2); BLOOD UREA NITROGEN 22 MG/DL (9-23); CARBON DIOXIDE LEVEL 30 MMOL/L (20-31); CHLORIDE LEVEL 106 MMOL/L (98-107); CHOLESTEROL LEVEL 112 MG/DL (<200); CREATININE FOR GFR 1.01 MG/DL (0.70-1.30); GLOMERULAR FILTRATION RATE > 60.0 (>56); GLUCOSE, FASTING 162 MG/DL (60-100); LDL CHOLESTEROL 42.6 MG/DL (<100); POTASSIUM SERUM 4.7 MMOL/L (3.5-5.1); SODIUM LEVEL 141 MMOL/L (136-145); TOTAL PROTEIN 7.2 G/DL (5.7-8.2); TRIGLYCERIDES LEVEL 172 MG/DL (<150)
== END ==
LOC: M WUC 09:19
PROVIDERS: ATTEND Internal Medicine
DX: I50.9 Heart failure, unspecified (principal); I48.91 Unspecified atrial fibrillation; E11.9 Type 2 diabetes mellitus without complications

== ENCOUNTER → 2023-10-19 | Outpatient (CLI) | payer BC ==
[2023-10-19 06:50] LABS: HEMATOCRIT 44.8 % (42.0-52.0); HEMOGLOBIN 15.7 g/dl (13.5-17.5); MEAN CORPUSCULAR HEMOGLOBIN 32.1 pg (27.0-33.0); MEAN CORPUSCULAR VOLUME 91.6 fl (80.0-96.0); PLATELET COUNT, AUTOMATED 258 10^3/uL (150-450); RED BLOOD COUNT 4.89 10^6/uL (4.30-6.10); WHITE BLOOD COUNT 6.8 10^3/uL (4.0-10.0)
[2023-10-19 07:01] LABS: INR 1.59; PROTHROMBIN TIME 18.4 SECONDS (12.5-14.5)
== END ==
LOC: M LAB 06:32
PROVIDERS: ATTEND Dentist
DX: I25.10 Atherosclerotic heart disease of native coronary artery without angina pectoris (principal)

== ENCOUNTER → 2024-03-11 | Outpatient (CLI) | payer BC ==
[2024-03-11 10:24] LABS: INR 2.06; PROTHROMBIN TIME 22.5 SECONDS (12.5-14.5)
== END ==
LOC: M PLALAB 08:52
PROVIDERS: ATTEND Physician Assistant
DX: I34.0 Nonrheumatic mitral (valve) insufficiency (principal)

== ENCOUNTER 2024-03-17 16:18 | Emergency (ER) | payer BC ==
[~2024-03-17] VITALS: Ht 182.9 cm; Wt 63.6 kg
[2024-03-17] MEDS: AZITHROMYCIN INJ 500 MG, VIAL MATE ADAPTER 1 EACH in NS 250 ML IV ONE (17:50)
[2024-03-17 17:54] LABS: HEMATOCRIT 32.5 % (42.0-52.0); HEMOGLOBIN 10.8 g/dl (13.5-17.5); MEAN CORPUSCULAR HEMOGLOBIN 30.8 pg (27.0-33.0); MEAN CORPUSCULAR HGB CONC 33.2 g/dl (32.0-36.5); MEAN CORPUSCULAR VOLUME 92.6 fl (80.0-96.0); PLATELET COUNT, AUTOMATED 534 10^3/uL (150-450); RED BLOOD COUNT 3.51 10^6/uL (4.30-6.10); WHITE BLOOD COUNT 24.2 10^3/uL (4.0-10.0)
[2024-03-17 18:01] LABS: APPEARANCE, URINE CLEAR (CLEAR); BACTERIA, URINE AUTO NEGATIVE (NEGATIVE); BILIRUBIN, URINE AUTO NEGATIVE (NEGATIVE); BLOOD, URINE BLOOD NEGATIVE (NEGATIVE); COLOR, URINE YELLOW (YELLOW); GLUCOSE, URINE (UA) AUTO 3+ mg/dL (NEGATIVE); KETONE, URINE AUTO NEGATIVE (NEGATIVE); LEUKOCYTE ESTERASE, URINE AUTO NEGATIVE (NEGATIVE); NITRITE, URINE AUTO NEGATIVE (NEGATIVE); PROTEIN, URINE AUTO NEGATIVE (NEGATIVE); RBC, URINE AUTO 0 /HPF (0-3); SPECIFIC GRAVITY URINE AUTO 1.031 (1.002-1.035); SQUAMOUS EPITHELIAL CELL UR AU 0 /HPF (0-6); UROBILINOGEN, URINE AUTO 0.2 mg/dL (0.0-2.0); WBC, URINE AUTO 0 /HPF (0-3)
[2024-03-17 18:06] LABS: AMYLASE 55 U/L (30-118)
[2024-03-17 18:07] LABS: ALBUMIN 2.9 G/DL (3.2-5.2); ALKALINE PHOSPHATASE 83 U/L (46-116); ALT/SGPT 33 U/L (7.0-40); AST/SGOT 48 U/L (<34); BILIRUBIN,DIRECT 0.5 MG/DL (<0.4); BILIRUBIN,TOTAL 0.8 MG/DL (0.3-1.2); BLOOD UREA NITROGEN 22 MG/DL (9-23); CALCIUM LEVEL 8.6 MG/DL (8.5-10.1); CARBON DIOXIDE LEVEL 29 MMOL/L (20-31); CHLORIDE LEVEL 92 MMOL/L (98-107); CREATININE FOR GFR 0.79 MG/DL (0.70-1.30); GLOMERULAR FILTRATION RATE > 60.0 (>56); GLUCOSE, FASTING 120 MG/DL (60-100); POTASSIUM SERUM 4.4 MMOL/L (3.5-5.1); SODIUM LEVEL 130 MMOL/L (136-145); TOTAL PROTEIN 6.8 G/DL (5.7-8.2)
[2024-03-17 18:18] LABS: INR 3.1; PARTIAL THROMBOPLASTIN TIME 41.5 SECONDS (24.8-34.2); PROCALCITONIN 0.35 ng/ml; PROTHROMBIN TIME 30.8 SECONDS (12.5-14.5)
[2024-03-17 18:51] LABS: DIGOXIN LEVEL 0.9 NG/ML (0.8-2.0)
[2024-03-17] MEDS ORDERED: ISOVUE-370 76% 100ML VIAL As Ordered ONE (18:53)
[2024-03-17] MEDS: cefTRIAXone SOD 2 GM in D5W MINI-BAG PLUS 50 ML IV ONE (19:10)
[2024-03-17 19:21] LABS: ATYPICAL LYMPH 1 % (0-5); LYMPHOCYTES 3 % (16-44); MONOCYTES 4 % (0-5); NEUTROPHILS 91 % (28-66); PLATELET ESTIMATE INCREASED (NORMAL)
[2024-03-17 19:24] LABS: POLYCHROMASIA 1+
[2024-03-18 00:15] VITALS: BP 112/61; TEMP 96.8; O2SAT 97
== END 2024-03-18 00:28 | disposition short-term general hospital (02) ==
LOC: M ED 16:18
DX: T81.40XA Infection following a procedure, unspecified, initial encounter (principal); L03.313 Cellulitis of chest wall; I48.92 Unspecified atrial flutter; E11.9 Type 2 diabetes mellitus without complications; I10 Essential (primary) hypertension; K21.9 Gastro-esophageal reflux disease without esophagitis; E78.5 Hyperlipidemia, unspecified; F41.9 Anxiety disorder, unspecified; F32.0 Major depressive disorder, single episode, mild; Z86.79 Personal history of other diseases of the circulatory system; Z79.82 Long term (current) use of aspirin; Z79.83 Long term (current) use of bisphosphonates; Z79.01 Long term (current) use of anticoagulants; Z79.899 Other long term (current) drug therapy
CPT/HCPCS: 71045; 71275; 80048; 80076; 80162; 81001; 82150; 83605; 84145; 85025; 85610; 85730; 86140; 86850; 86900; 86901; 87040; 87086; 93005; 93041; 94760; 96374; 96375; 99285; J0456; J0696; Q9967

== ENCOUNTER → 2024-03-23 | Outpatient (CLI) | payer BC ==
[2024-03-23 16:25] LABS: INR 1.56; PROTHROMBIN TIME 18.2 SECONDS (12.5-14.5)
== END ==
LOC: M WUC 11:47
PROVIDERS: ATTEND Nurse Practitioner
DX: Z98.890 Other specified postprocedural states (principal)

== ENCOUNTER 2024-07-16 15:47 | Emergency (ER) | payer BC ==
[~2024-07-16] VITALS: Ht 182.9 cm; Wt 67.5 kg
[~2024-07-16 15:47] MED LIST changes: -ROSU20TA61 PO; +ROSU20TA86 PO
[2024-07-16 15:54] VITALS: TEMP 97.6
[2024-07-16] MEDS ORDERED: JARD1TAB3 (16:02)
[2024-07-16] MEDS ORDERED: ELIQ5TAB (16:02)
[2024-07-16] MEDS ORDERED: NS 500 ML IV ONE (16:15)
[2024-07-16] MEDS ORDERED: MORPHINE 2 MG/ML 1ML VIAL IV PRN (16:15)
[2024-07-16] MEDS ORDERED: ISOVUE-370 76% 100ML VIAL As Ordered ONE (16:33)
[2024-07-16 16:42] LABS: VENOUS BASE EXCESS 1.5 (-2.0-2.0); VENOUS HCO3 27.5 MMOL/L (23.0-27.0); VENOUS O2 SATURATION 77.5 % (60.0-80.0); VENOUS PARTIAL PRESSURE CO2 48.7 mmHg (38.0-50.0); VENOUS PARTIAL PRESSURE O2 42.1 mmHg (30.0-50.0); VENOUS STANDARD HCO3 25.4 MMOL/L
[2024-07-16 16:45] LABS: BASO % 0.4 % (0.0-1.0); EOS # 0.2 10^3/uL (0.0-0.5); EOS % 1.6 % (0.0-3.0); HEMATOCRIT 40.6 % (42.0-52.0); HEMOGLOBIN 12.9 g/dl (13.5-17.5); LYMPH # 1.9 10^3/uL (1.5-5.0); MEAN CORPUSCULAR HEMOGLOBIN 26.9 pg (27.0-33.0); MEAN CORPUSCULAR HGB CONC 31.8 g/dl (32.0-36.5); MEAN CORPUSCULAR VOLUME 84.6 fl (80.0-96.0); MONO # 0.9 10^3/uL (0.0-0.8); MONO % 8.4 % (2.0-8.0); NEUTROPHILS # 7.5 10^3/uL (1.5-8.5); PLATELET COUNT, AUTOMATED 245 10^3/uL (150-450); WHITE BLOOD COUNT 10.7 10^3/uL (4.0-10.0)
[2024-07-16] MEDS: NS 500 ML IV ONE (17:01)
[2024-07-16] MEDS: ONDANSETRON 4MG 2ML VIAL IV ONE (17:01)
[2024-07-16] MEDS: MORPHINE 4 MG/ML 1ML VIAL IV ONE (17:01)
[2024-07-16 17:05] LABS: LIPASE 41 U/L (12-53)
[2024-07-16 17:06] LABS: AMYLASE 50 U/L (30-118)
[2024-07-16 17:07] LABS: ALBUMIN 3.9 G/DL (3.2-5.2); ALKALINE PHOSPHATASE 66 U/L (40-129); ALT/SGPT 21 U/L (7.0-40); AST/SGOT 39 U/L (<34); BILIRUBIN,DIRECT 0.2 MG/DL (<0.4); BILIRUBIN,TOTAL 0.5 MG/DL (0.3-1.2); BLOOD UREA NITROGEN 23 MG/DL (9-23); CALCIUM LEVEL 9.6 MG/DL (8.5-10.1); CARBON DIOXIDE LEVEL 29 MMOL/L (20-31); CHLORIDE LEVEL 104 MMOL/L (98-107); CREATININE FOR GFR 1.04 MG/DL (0.70-1.30); GLOMERULAR FILTRATION RATE > 60.0 (>56); GLUCOSE, FASTING 165 MG/DL (60-100); POTASSIUM SERUM 4.7 MMOL/L (3.5-5.1); SODIUM LEVEL 141 MMOL/L (136-145); TOTAL PROTEIN 7.8 G/DL (5.7-8.2)
[2024-07-16 17:11] LABS: INR 1.13; PARTIAL THROMBOPLASTIN TIME 27.6 SECONDS (24.8-34.2); PROTHROMBIN TIME 14.8 SECONDS (12.5-14.5)
[2024-07-16] MEDS ORDERED: OXYC1TAB23 PO (17:45)
[2024-07-16] MEDS: PERCOCET 5MG/325MG TAB PO ONE (17:57)
[2024-07-16 18:06] VITALS: BP 124/61; O2SAT 96
== END 2024-07-16 18:09 | disposition home or self-care (01) ==
LOC: M ED 15:47
DX: S22.32XA Fracture of one rib, left side, initial encounter for closed fracture (principal); S20.212A Contusion of left front wall of thorax, initial encounter; S20.224A Contusion of middle back wall of thorax, initial encounter; Y92.019 Unspecified place in single-family (private) house as the place of occurrence of the external cause; Y93.9 Activity, unspecified; Y99.9 Unspecified external cause status; W00.0XXA Fall on same level due to ice and snow, initial encounter; I48.91 Unspecified atrial fibrillation; I50.22 Chronic systolic (congestive) heart failure; E11.9 Type 2 diabetes mellitus without complications; Z79.01 Long term (current) use of anticoagulants; Z79.1 Long term (current) use of non-steroidal anti-inflammatories (NSAID); Z79.4 Long term (current) use of insulin; Z79.84 Long term (current) use of oral hypoglycemic drugs; Z79.899 Other long term (current) drug therapy
CPT/HCPCS: 70450; 71045; 71260; 72125; 72128; 72131; 74177; 80047; 80048; 80076; 82150; 82803; 83690; 85025; 85610; 85730; 86850; 86900; 86901; 93005; 93041; 94010; 94760; 96361; 96374; 99285; J2405; Q9967

== ENCOUNTER 2024-08-02 09:20 | Day surgery (SDC) | payer BC ==
[~2024-08-02] VITALS: Ht 182.9 cm; Wt 65.9 kg
[~2024-08-02 09:20] MED LIST changes: +ELIQ5TAB PO; +JARD1TAB3; +OXYC1TAB23 PO
[2024-08-02] MEDS ORDERED: DIGO0.253 PO (09:39)
[2024-08-02] MEDS ORDERED: ATEN50TA2 PO (09:39)
[2024-08-02] MEDS ORDERED: propofoL 200 MG/20 ML VIAL As Ordered ONE (10:36)
[2024-08-02 12:18] VITALS: BP 140/73; TEMP 97; O2SAT 99
== END 2024-08-02 12:20 | disposition home or self-care (01) ==
LOC: M SDC 09:20
PROVIDERS: ATTEND Internal Medicine Cardiovascular Disease
DX: I48.3 Typical atrial flutter (principal); I44.7 Left bundle-branch block, unspecified; I11.0 Hypertensive heart disease with heart failure; E78.5 Hyperlipidemia, unspecified; I50.9 Heart failure, unspecified; Z95.2 Presence of prosthetic heart valve; Z79.899 Other long term (current) drug therapy; Z79.01 Long term (current) use of anticoagulants

== ENCOUNTER → 2024-10-26 | Outpatient (CLI) | payer BC ==
[~2024-10-26] MED LIST changes: +ATEN50TA2 PO; +DIGO0.253 PO; +GLIP-318 PO; -GLIP5TAB20 PO
[2024-10-26 14:22] LABS: HEMOGLOBIN 15.9 g/dl (13.5-17.5); MEAN CORPUSCULAR HGB CONC 33.8 g/dl (32.0-36.5); MEAN CORPUSCULAR VOLUME 85.8 fl (80.0-96.0); PLATELET COUNT, AUTOMATED 286 10^3/uL (150-450); RED BLOOD COUNT 5.48 10^6/uL (4.30-6.10); WHITE BLOOD COUNT 8.3 10^3/uL (4.0-10.0)
[2024-10-26 14:30] LABS: ALBUMIN 4.5 G/DL (3.2-5.2); ALKALINE PHOSPHATASE 80 U/L (40-129); ALT/SGPT 19 U/L (7.0-40); AST/SGOT 17 U/L (<34); BILIRUBIN,TOTAL 0.6 MG/DL (0.3-1.2); BLOOD UREA NITROGEN 25 MG/DL (9-23); CALCIUM LEVEL 9.8 MG/DL (8.5-10.1); CARBON DIOXIDE LEVEL 31 MMOL/L (20-31); CHLORIDE LEVEL 101 MMOL/L (98-107); CHOLESTEROL LEVEL 123 MG/DL (<200); CHOLESTEROL RISK RATIO 3.51 (<5); CREATININE FOR GFR 0.83 MG/DL (0.70-1.30); GLOMERULAR FILTRATION RATE > 60.0 (>56); GLUCOSE, FASTING 172 MG/DL (60-100); LDL CHOLESTEROL 47.6 MG/DL (<100); POTASSIUM SERUM 4.8 MMOL/L (3.5-5.1); SODIUM LEVEL 139 MMOL/L (136-145); TOTAL PROTEIN 7.8 G/DL (5.7-8.2); TRIGLYCERIDES LEVEL 202 MG/DL (<150)
[2024-10-26 15:25] LABS: HEMOGLOBIN A1c 6.9 % (4.0-6.0)
== END ==
LOC: M WUC 11:17
PROVIDERS: ATTEND Internal Medicine
DX: I48.91 Unspecified atrial fibrillation (principal); E11.9 Type 2 diabetes mellitus without complications; E78.2 Mixed hyperlipidemia

== ENCOUNTER → 2025-02-28 | Outpatient (CLI) | payer BC ==
[~2025-02-28] MED LIST changes: -AMIO200T49 PO; +AMIO200T54 PO; -FLOM0.4C39 PO; +OMEP40CA4 PO; -PRAV40TA2; +PRAV40TA85; +TAMS-18 PO
== END ==
LOC: M CARPUL 09:29
PROVIDERS: ATTEND Physician Assistant
DX: Z95.3 Presence of xenogenic heart valve (principal); I08.0 Rheumatic disorders of both mitral and aortic valves; I37.1 Nonrheumatic pulmonary valve insufficiency

== ENCOUNTER → 2025-03-24 | Outpatient (CLI) | payer BC ==
[2025-03-30 13:07] LABS: FLECAINIDE LEVEL 0.57 ug/ml (0.20 - 1.00)
== END ==
LOC: M WUC 09:09
PROVIDERS: ATTEND Physician Assistant
DX: I48.0 Paroxysmal atrial fibrillation (principal)

== ENCOUNTER → 2025-04-03 | Outpatient (CLI) | payer BC | LOC: M WUC 09:50 | PROVIDERS: ATTEND Nurse Practitioner Family | DX: M25.531 Pain in right wrist (principal) ==

== ENCOUNTER → 2025-05-02 | Outpatient (CLI) | payer BC ==
[2025-05-02 14:06] LABS: BASO # 0.0 10^3/uL (0.0-0.2); BASO % 0.5 % (0.0-1.0); EOS # 0.3 10^3/uL (0.0-0.5); EOS % 3.6 % (0.0-3.0); LYMPH # 1.8 10^3/uL (1.5-5.0); LYMPH % 23.9 % (24.0-44.0); MONO # 0.9 10^3/uL (0.0-0.8); MONO % 11.3 % (2.0-8.0); NEUTROPHILS # 4.6 10^3/uL (1.5-8.5); NEUTROPHILS % 60.4 % (36.0-66.0); PLATELET COUNT, AUTOMATED 255 10^3/uL (150-450)
[2025-05-02 15:36] LABS: ALT/SGPT 12 U/L (7.0-40); AST/SGOT 17 U/L (<34); CALCIUM LEVEL 9.1 MG/DL (8.5-10.1); CARBON DIOXIDE LEVEL 28 MMOL/L (20-31); CHLORIDE LEVEL 105 MMOL/L (98-107); CHOLESTEROL LEVEL 125 MG/DL (<200); CHOLESTEROL RISK RATIO 2.87 (<5); CREATININE FOR GFR 0.75 MG/DL (0.70-1.30); GLOMERULAR FILTRATION RATE > 90.0 (>56); LDL CHOLESTEROL 55.7 MG/DL (<100); NON-HDL-C 81.5 MG/DL; POTASSIUM SERUM 4.5 MMOL/L (3.5-5.1); SODIUM LEVEL 143 MMOL/L (136-145); TRIGLYCERIDES LEVEL 129 MG/DL (<150)
[2025-05-02 16:19] LABS: ESTIMATED AVERAGE GLUCOSE 148.0 MG/DL (60-110)
== END ==
LOC: M WUC 11:04
PROVIDERS: ATTEND Internal Medicine
DX: E78.2 Mixed hyperlipidemia (principal); E11.9 Type 2 diabetes mellitus without complications; I48.91 Unspecified atrial fibrillation